=== PATIENT | female | born 1995 | race African-American/Black ===

== ENCOUNTER 2017-11-11 09:43 | Emergency (ER) | payer OTHER ==
[2017-11-11] MEDS ORDERED: HYDROCODONE/ACETAMINOPHEN 10-325 MG TABLET PO ONE (11:24)
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
[2017-11-11 13:10] VITALS: BP 104/73
== END 2017-11-11 13:10 | disposition home or self-care (01) ==
LOC: ER 09:43
DX: S16.1XXA Strain of muscle, fascia and tendon at neck level, initial encounter (principal); M54.2 Cervicalgia; R07.81 Pleurodynia; V87.7XXA Person injured in collision between other specified motor vehicles (traffic), initial encounter
CPT/HCPCS: 72050; 99284

== ENCOUNTER 2017-11-18 08:45 | Emergency (ER) | payer OTHER ==
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
[2017-11-18] MEDS ORDERED: ACETAMINOPHEN 325 MG TABLET PO ONE (09:54)
[2017-11-18] MEDS ORDERED: IBUPROFEN 800 MG TABLET PO ONE (09:54)
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
[2017-11-18 11:31] VITALS: BP 107/59
== END 2017-11-18 11:31 | disposition home or self-care (01) ==
LOC: ER 08:45
DX: S16.1XXA Strain of muscle, fascia and tendon at neck level, initial encounter (principal); S29.012A Strain of muscle and tendon of back wall of thorax, initial encounter; M54.2 Cervicalgia; V43.92XA Unspecified car occupant injured in collision with other type car in traffic accident, initial encounter
CPT/HCPCS: 72070; 72125; 99284

== ENCOUNTER 2018-01-25 03:36 | Emergency (ER) | payer OTHER ==
[2018-01-25] MEDS ORDERED: ONDANSETRON 4 MG TAB.RAPDIS PO ONE (03:48)
[2018-01-25] MEDS ORDERED: HYDROMORPHONE HCL INJ/PF 2 MG/ML AMPULE IV ONE (03:48)
[2018-01-25] MEDS ORDERED: ONDANSETRON HCL INJ/PF 4 MG/2 ML SDV IV ONE (03:49)
--- NOTE | 2018-01-25 03:51 | ER Document Report ---
ED Wound - General Chief Complaint: Laceration Stated Complaint: KNEE INJURY Time Seen by Provider: 01/25/18 03:46 Notes: Patient is a 22-year-old female that comes emergency department for chief complaint of laceration to her left knee. She states that she tripped and fell onto the ground, she thinks she hit her knee on the metal part of the door. She has a deep wound over the mid to lower part of her knee with a lot of bleeding. She is up-to-date on her tetanus within 5 years. She denies . TRAVEL OUTSIDE OF THE [place] IN LAST 30 DAYS: No - Related Data Allergies/Adverse Reactions: No Known Allergies Allergy (Verified 01/25/18 03:50) Past Medical History - General Information source: Patient - Social History Smoking Status: Never Smoker Drug Abuse: None Lives with: Spouse/Significant other Family History: Reviewed & Not Pertinent - Medical History Medical History: Negative Renal/ Medical History: Denies: Hx Peritoneal Dialysis Surgical Hx: Negative - Immunizations Immunizations up to date: Yes Hx Diphtheria, Pertussis, Tetanus Vaccination: Yes Review of Systems - Review of Systems Constitutional: No symptoms reported EENT: No symptoms reported Cardiovascular: No symptoms reported Respiratory: No symptoms reported Gastrointestinal: No symptoms reported Genitourinary: No symptoms reported Female Genitourinary: No symptoms reported Musculoskeletal: See HPI Skin: See HPI Hematologic/Lymphatic: No symptoms reported Neurological/Psychological: No symptoms reported Physical Exam - Vital signs Vitals: Temp Pulse Resp BP Pulse Ox 97.6 F 98 16 116/88 H 98 01/25/18 03:48 01/25/18 03:48 01/25/18 03:48 01/25/18 03:48 01/25/18 03:48 - General General appearance: Anxious In distress: Moderate - patient crying and appears to be in a lot of pain - HEENT Head: Normocephalic, Atraumatic Eyes: Normal Conjunctiva: Normal Extraocular movements intact: Yes Eyelashes: Normal Pupils: PERRL Sinus: Normal Nasal: Normal Mouth/Lips: Normal Mucous membranes: Normal Pharynx: Normal Neck: Normal - Respiratory Respiratory status: No respiratory distress Breath sounds: Normal. No: Decreased air movement - Cardiovascular Rhythm: Regular. No: Tachycardia Heart sounds: Normal auscultation, S1 appreciated, S2 appreciated - Abdominal Inspection: Normal Tenderness: Nontender - Back Back: Normal, Nontender. No: Tender - Extremities General upper extremity: Normal inspection, Nontender, Normal ROM, Normal strength, Normal temperature General lower extremity: Other - There is a large horizontal laceration over the anterior aspect of the left knee in the mid to lower area, this is horizontal and even, full-thickness, can see patella bone underneath the wound. Normal distal sensation and capillary refill, normal distal pulses. No other signs of injury over the lower extremity. - Neurological Neuro grossly intact: Yes Cognition: Normal Orientation: AAOx4 [place] Coma Scale Eye Opening: Spontaneous [place] Coma Scale Verbal: Oriented Elvis Coma Scale Motor: Obeys Commands Elvis Coma Scale Total: 15 - Psychological Associated symptoms: Tearful - Skin Skin Temperature: Warm Skin Moisture: Dry Skin Color: Normal Course - Re-evaluation Re-evalutation: Patient does have a large laceration, approximately 6 cm across, irregular, full -thickness, down to the patella. Initially given Ancef IV, Dilaudid. However she has normal range of motion, distal neurovascular exam is normal, x-ray does not show open fracture. Area was irrigated very well, closure performed, patient placed in knee immobilizer, provided with antibiotics and pain medication, referred to orthopedics. Discussed with Dr. Peterson. Discussed follow-up, wound care, return precautions. Patient states understanding and agreement. - Vital Signs Vital signs: Temp Pulse Resp BP Pulse Ox 97.6 F 98 16 116/88 H 98 01/25/18 03:48 01/25/18 03:48 01/25/18 03:48 01/25/18 03:48 01/25/18 03:48 Procedures - Immobilization left knee Pre-Proc Neuro Vasc Exam: Normal Immobilizer type: Knee immobilizer Performed by: PCT Post-Proc Neuro Vasc Exam: Normal Alignment checked and good: Yes - Laceration/Wound Repair left knee Wound length (cm): 6 Wound's Depth, Shape: Irregular Laceration pre-procedure: Sterile PPE donned, Sterile drapes applied, Shur- Clens applied Anesthetic type: 1% Lidocaine w/epi Volume Anesthetic (mLs): 8 Wound explored: Clean, No foreign body removed Irrigated w/ Saline (mLs): 90 Wound Repaired With: Sutures Suture Size/Type: 3:0, Nylon Number of Sutures: 11 Layer Closure?: Yes Deep Layer Suture Size/Type: 5:0, Other - vicryl Number Deep Layer Sutures: 4 Post-procedure wound care: Sterile dressing applied, Splint applied Post-procedure NV exam normal: Yes Complications: No Discharge - Discharge Clinical Impression: Laceration of knee Qualifiers: Encounter type: initial encounter Laterality: left Qualified Code(s): S81.012A - Laceration without foreign body, left knee, initial encounter Condition: Stable Disposition: HOME, SELF-CARE Additional Instructions: The x-ray is normal. This was a deep laceration down to the patella (the bone of your knee), as result please take the Augmentin antibiotic as prescribed. Take the morphine if needed for pain. Use knee immobilizer, take anti- inflammatory naproxen as prescribed. I recommend elevating the leg when possible. You can clean gently with soap and water, you can apply topical antibiotic, avoid soaking or heavy scrubbing. Follow-up with orthopedics in the next several days. Sutures need to come out in about 10 days at a medical facility. Return immediately if you develop any concerning or worsening symptoms including severe swelling or pain, spreading redness, discolored discharge, fever, or any other concerning symptoms. Prescriptions: Morphine Sulfate [Morphine Ir 15 Mg Tablet] 15 mg PO Q4HP PRN #12 tablet PRN Reason: Amox Tr/Potassium Clavulanate [Augmentin 875-125 Tablet] 1 tab PO BID 7 Days tablet Naproxen [Naprosyn 375 Mg Tablet] 375 mg PO BID PRN #20 tablet PRN Reason: Forms: Return to Work Referrals: MADDI SALAZAR MD [ACTIVE STAFF] - Follow up in 3-5 days
[2018-01-25] MEDS ORDERED: CEFAZOLIN 1 GM/D5W RTU 1 GM/50 ML RTUPB IV ONE (03:52)
[2018-01-25] MEDS ORDERED: LIDOCAINE 1%/EPINEPHRINE INJ 20 ML VIAL INJ ONE (04:18)
--- NOTE | 2018-01-25 04:36 | RADIOLOGY REPORT (SQ) ---
EXAM DESCRIPTION: KNEE LEFT 3 VIEWS CLINICAL HISTORY: fall on knee, wound down to patella COMPARISON: None. FINDINGS: 3 views of the left knee. No acute fracture or dislocation. Normal osseous mineralization. No definite joint effusion. IMPRESSION: No acute fracture or dislocation.
[2018-01-25 05:43] VITALS: BP 111/74
== END 2018-01-25 05:42 | disposition home or self-care (01) ==
LOC: ER 03:36
DX: S81.012A Laceration without foreign body, left knee, initial encounter (principal); W01.0XXA Fall on same level from slipping, tripping and stumbling without subsequent striking against object, initial encounter
CPT/HCPCS: 99283; 96375; 96365; 73562; 12032; J0690; J3490; J1170; J2405

== ENCOUNTER 2018-02-04 13:31 | Emergency (ER) | payer OTHER ==
[2018-02-04 13:51] VITALS: BP 112/74
--- NOTE | 2018-02-04 14:21 | ER Document Report ---
HPI - HPI Patient complains to provider of: suture removal Pain Level: Denies Context: Patient is a 22-year-old female who returns emergency department after having sutures placed on her left knee on January 25 after fall. Tetanus up-to-date. She denies any purulent drainage, sensitivity, decreased range of motion, knee pain. She states that she has been keeping it clean and covered. Denies any tobacco, alcohol or drug use. Denies any allergies. Past Medical History - Social History Smoking Status: Never Smoker Family History: Reviewed & Not Pertinent Renal/ Medical History: Denies: Hx Peritoneal Dialysis - Immunizations Immunizations up to date: Yes Hx Diphtheria, Pertussis, Tetanus Vaccination: Yes Vertical Provider Document - CONSTITUTIONAL Agree With Documented VS: Yes Notes: PHYSICAL EXAM GENERAL: Alert, interacts well. EXTREMITIES: Moves all 4 extremities spontaneously. No edema, radial and dorsalis pedis pulses 2/4 bilaterally. No cyanosis. NEUROLOGICAL: Alert and oriented x4. Normal speech. PSYCH: Normal affect, normal mood. SKIN: Warm, dry, normal turgor. Laceration in the anterior patellar tibial tendon without any evidence of induration, purulent drainage or fluctuance. Mild wound dehiscence at the lateral borders likely related to patient moving her knee. No concerns for deep wound infection - INFECTION CONTROL TRAVEL OUTSIDE OF THE [place] IN LAST 30 DAYS: No Course - Re-evaluation Re-evalutation: 02/04/18 14:19 Patient is 22-year-old female is hemodynamically stable, no acute distress afebrile. Sutures removed. Wounds clean and dressed. Discussed wound care at home and to follow-up with primary care as needed - Vital Signs Vital signs: Temp Pulse Resp BP Pulse Ox 98.3 F 63 16 112/74 99 02/04/18 13:50 02/04/18 13:50 02/04/18 13:50 02/04/18 13:50 02/04/18 13:50 Discharge - Discharge Clinical Impression: Visit for suture removal Condition: Good Disposition: HOME, SELF-CARE Instructions: Suture Removal, Dressing Instructions for Open Wounds ([facility])
== END 2018-02-04 14:31 | disposition home or self-care (01) ==
LOC: ER 13:31
DX: S81.012D Laceration without foreign body, left knee, subsequent encounter (principal); X58.XXXD Exposure to other specified factors, subsequent encounter